=== PATIENT | female | born 1960 | race Caucasian/White ===

== ENCOUNTER 2017-03-28 07:57 | Emergency (ER) | payer BC, MEDICAID ==
[~2017-03-28] VITALS: Ht 157.5 cm; Wt 73.6 kg
[~2017-03-28 07:57] MED LIST: AMLO10TA2 PO; CITA20TA5 PO; HYDR25TA6 PO; LABE100T3 PO; LOSA100T6 PO; POTA10TA57 PO
[2017-03-28 08:00] VITALS: BP 128/74
== END 2017-03-28 09:02 | disposition home or self-care (01) ==
LOC: ED 08:56
DX: J20.9 Acute bronchitis, unspecified (principal); I10 Essential (primary) hypertension
CPT/HCPCS: 71020; 87081; 87880; 99285